=== PATIENT | female | born 1955 | race African-American/Black ===

== ENCOUNTER 2018-09-30 19:40 | Inpatient (IN) | payer MEDICARE, OTHER ==
[2018-09-30 20:24] LABS: ABSOLUTE LYMPHOCYTES (AUTO) 1.9 10^3/uL (0.5-4.7); ABSOLUTE MONOCYTES (AUTO) 0.3 10^3/uL (0.1-1.4); ABSOLUTE NEUT (AUTO) 3.6 10^3/uL (1.7-8.2); BASOPHILS % (AUTO) 0.3 % (0-2); EOSINOPHILS % (AUTO) 0.5 % (0-6); HEMATOCRIT 36.8 % (36.0-47.0); HEMOGLOBIN 12.4 g/dL (12.0-15.5); LYMPHOCYTES % (AUTO) 31.9 % (13-45); MEAN CORPUSCULAR HEMOGLOBIN 30.6 pg (27.0-33.4); MEAN CORPUSCULAR HGB CONC 33.8 g/dL (32.0-36.0); MEAN CORPUSCULAR VOLUME 91 fl (80-97); MONOCYTES % (AUTO) 5.3 % (3-13); PLATELET COUNT 166 10^3/uL (150-450); RED BLOOD COUNT 4.07 10^6/uL (3.72-5.28); RED CELL DISTRIBUTION WIDTH 13.7 % (11.5-14.0); TOTAL CELLS COUNTED % (AUTO) 100 %; WHITE BLOOD COUNT 5.9 10^3/uL (4.0-10.5)
[2018-09-30 20:32] LABS: INTERNATIONAL RATION (INR) 0.93
[2018-09-30 20:42] LABS: ALANINE AMINOTRANSFERASE 49 U/L (9-52); ALBUMIN 4.1 g/dL (3.5-5.0); ALKALINE PHOSPHATASE 57 U/L (38-126); ANION GAP 10 (5-19); ASPARTATE AMINO TRANSFERASE 45 U/L (14-36); BILIRUBIN,DIRECT 0.1 mg/dL (0.0-0.4); BILIRUBIN,TOTAL 0.2 mg/dL (0.2-1.3); BLOOD UREA NITROGEN 21 mg/dL (7-20); CALCIUM 10.2 mg/dL (8.4-10.2); CARBON DIOXIDE 27 mmol/L (22-30); CHLORIDE 106 mmol/L (98-107); GLUCOSE 172 mg/dL (75-110); POTASSIUM 3.9 mmol/L (3.6-5.0); SODIUM 142.9 mmol/L (137-145); TOTAL PROTEIN 7.7 g/dL (6.3-8.2)
[2018-09-30] MEDS ORDERED: [UNRECOGNIZED DRUG - OTHER] IV ONE (20:54)
[2018-09-30] MEDS ORDERED: RINGERS SOLUTION,LACTATED 2,000 ML IV ONE (20:54)
[2018-09-30] MEDS ORDERED: CEFEPIME IV ONE (20:54)
--- NOTE | 2018-09-30 20:55 | RADIOLOGY REPORT (SQ) ---
EXAM DESCRIPTION: XR CHEST 1 VIEW COMPLETED DATE/TME: 09/30/2018 20:17 CLINICAL HISTORY: AMS COMPARISON: None FINDINGS: Cardiac silhouette is within normal limits. Aorta is tortuous. EKG leads project over the chest. There is no focal parenchymal or pleural disease. There is no acute osseous process visualized. IMPRESSION: No evidence of acute cardiopulmonary disease.
--- NOTE | 2018-09-30 21:06 | ER Document Report ---
ED General - General Chief Complaint: Other Stated Complaint: ALTERED Time Seen by Provider: 09/30/18 20:16 Cannot obtain history due to: Dementia, Altered mental status Notes: Patient is a 63-year-old female with a past medical history of advanced dementia, effectively nonverbal at baseline who presents with her family by EMS due to concerns of altered mental status, abnormal breathing pattern. Patient is unable to provide any meaningful history severely limiting history. Per at the bedside patient has been acting abnormally all day. States that normally she is up and about walking around all day long and very rarely sits still. He states that however today he fed her breakfast and then she did not get out of her chair. States that he checked on her regularly because he was concerned that this was quite unusual for her. States that at one point he checked on her and found her lying on the ground with a very irregular breathing pattern. Prompting him to contact 911. Patient was found to be hypothermic and was subsequently transported to the emergency department. No history of similar symptoms in the past. TRAVEL OUTSIDE OF THE [place] IN LAST 30 DAYS: No - Related Data Allergies/Adverse Reactions: No Known Allergies Allergy (Unverified 09/30/18 22:15) Past Medical History - General Information source: Relative Cannot obtain history due to: Dementia - Social History Smoking Status: Never Smoker Chew tobacco use (# tins/day): No Frequency of alcohol use: None Drug Abuse: None Lives with: Spouse/Significant other Family History: Reviewed & Not Pertinent Patient has suicidal ideation: No Patient has homicidal ideation: No Renal/ Medical History: Denies: Hx Peritoneal Dialysis Review of Systems - Review of Systems -: Yes ROS unobtainable due to patient's medical condition Physical Exam - Vital signs Vitals: Temp Pulse Resp BP Pulse Ox 94.9 F L 69 15 156/101 H 100 09/30/18 20:39 09/30/18 20:39 09/30/18 20:39 09/30/18 20:39 09/30/18 20:39 Interpretation: Other - Hypothermic Notes: PHYSICAL EXAMINATION: GENERAL: In no obvious distress, minimally responsive HEAD: Atraumatic, normocephalic. EYES: Pupils equal round and reactive to light, extraocular movements intact, sclera anicteric, conjunctiva are normal. ENT: nares patent, oropharynx clear without exudates. Mildly dry mucous membranes. NECK: Normal range of motion, supple without lymphadenopathy LUNGS: Breath sounds clear to auscultation bilaterally and equal. No wheezes rales or rhonchi. HEART: Regular rate and rhythm without murmurs ABDOMEN: Soft, nontender, normoactive bowel sounds. No guarding, no rebound. No masses appreciated. EXTREMITIES: no pitting or edema. No cyanosis. NEUROLOGICAL: No focal neurological deficits. Moves all extremities spontaneously. PSYCH: Nonverbal SKIN: Warm, Dry, normal turgor, no rashes or lesions noted. Course - Re-evaluation Re-evalutation: 09/30/18 2030 Patient presents lethargic, less responsive than her baseline although does not speak at baseline secondary to dementia although is normally up and about physically per the at the bedside. The patient arrives hypothermic to 94 F, chest compressions by family were done prior to arrival at the hospital although patient apparently never lost pulses per EMS. On initial examination patient does not have any obvious focal deficits. She does however not follow commands in any extremity. Picture is worrisome for severe sepsis given hypothermia, apparent global weakness, source yet undetermined. Chest x-ray, l abs, urinalysis are pending. 09/30/18 21:05 Patient's lactate is 4.4 concerning for severe sepsis. The patient will receive cefepime 2 g empirically and be started on 2 L of lactated Ringer's. Additional labs are otherwise relatively unremarkable. Urinalysis pending. Temperature Escobedo catheter will be placed. CT head will likewise be obtained. Will continue to reassess. 10/01/18 0100 Patient has been reassessed on 2 additional occasions since last assessment. Clinically has improved no longer hypothermic, more responsive per family at bedside. Labs other than lactate have been broadly unremarkable. CT of the chest abdomen and pelvis was also obtained to further evaluate potential source of the patient's significant hypothermia and lactate elevation but again likewise normal. Have discussed with the hospitalist Dr. Ramachandran who has accepted the patient for admission. CT of cervical spine was obtained after conversation with Dr. Ramachandran due to concerns of the patient did have a fall today and cannot clinically clear her cervical spine. - Vital Signs Vital signs: Temp Pulse Resp BP Pulse Ox 98.0 F 61 15 134/84 H 100 10/01/18 01:00 10/01/18 01:00 10/01/18 01:00 10/01/18 01:00 10/01/18 01:00 - Laboratory Result Diagrams: 09/30/18 20:00 09/30/18 20:00 Laboratory results interpreted by me: 09/30/18 09/30/18 09/30/18 20:00 20:00 21:30 BUN 21 H Glucose 172 H Lactic Acid 4.4 H AST 45 H Urine Ascorbic Acid 40 H - Diagnostic Test Radiology reviewed: Image reviewed, Reports reviewed Radiology results interpreted by me: 10/01/18 00:23 Chest x-ray: No acute infiltrate or pneumothorax CT head: No acute intracranial bleed or mass Discharge - Discharge Clinical Impression: Lactic acidosis Hypothermia Qualifiers: Encounter type: initial encounter Qualified Code(s): T68.XXXA - Hypothermia, i nitial encounter Altered mental status Qualifiers: Altered mental status type: somnolence Qualified Code(s): R40.0 - Somnolence Fall Qualifiers: Encounter type: initial encounter Qualified Code(s): W19.XXXA - Unspecified fall, initial encounter Condition: Fair Disposition: ADMITTED INPATIENT Admitting Provider: Madie (Hospitalist) Unit Admitted: Medical Floor
[2018-09-30 21:34] LABS: VENOUS BLOOD BASE EXCESS 3.7 mmol/L; VENOUS BLOOD HCO3 30.2 mmol/L (20-32); VENOUS BLOOD PCO2 53.6 mmHg (35-63); VENOUS BLOOD PH 7.37 (7.30-7.42)
--- NOTE | 2018-09-30 22:06 | RADIOLOGY REPORT (SQ) ---
EXAM DESCRIPTION: CT HEAD WITHOUT IV CONTRAST COMPLETED DATE/TME: 09/30/2018 20:54 CLINICAL HISTORY: ams COMPARISON: None available TECHNIQUE: Axial CT of the head obtained from the skull apex to the skull base without contrast. FINDINGS: No acute intracranial hemorrhage identified. No mass, mass effect, shift of the midline, abnormal extra-axial fluid collection or CT evidence of acute ischemic change identified. The ventricular system is enlarged upper portion to the sulcal spaces. Scattered areas of hypodensity throughout the supratentorial white matter are nonspecific and may be related to chronic small vessel ischemic change. The visualized paranasal sinuses and the mastoids are clear. No skull fracture identified. Visualized orbits and globes are unremarkable. Atherosclerotic calcification of the intracranial internal carotid arteries. DLP:1017.17 mGy-cm IMPRESSION: 1. No acute intracranial abnormality by CT criteria. 2. The ventricular system is mildly enlarged out of proportion to the sulcal spaces. This could indicate a component of communicating hydrocephalus. This exam was performed according to our departmental dose-optimization program, which includes automated exposure control, adjustment of the mA and/or kV according to patient size and/or use of iterative reconstruction technique.
[2018-09-30 22:21] LABS: APPEARANCE,URINE CLEAR; BILIRUBIN,URINE NEGATIVE (NEGATIVE); COLOR,URINE YELLOW; GLUCOSE, URINE NEGATIVE (NEGATIVE); KETONES,URINE NEGATIVE (NEGATIVE); LEUKOCYTE ESTERASE,URINE NEGATIVE (NEGATIVE); NITRITE,URINE NEGATIVE (NEGATIVE); PROTEIN,URINE NEGATIVE (NEGATIVE); UROBILINOGEN,URINE NEGATIVE mg/dL (<2.0)
--- NOTE | 2018-09-30 23:13 | EKG REPORT ---
SEVERITY:- BORDERLINE ECG - SINUS RHYTHM BORDERLINE INFERIOR Q WAVES MINIMAL ST DEPRESSION, INFERIOR LEADS : Confirmed by: Gabriele Tyson MD 30-Sep-2018 23:13:24
--- NOTE | 2018-09-30 23:17 | RADIOLOGY REPORT (SQ) ---
EXAM DESCRIPTION: CT CHEST WITH IV CONTRAST, CT ABDOMEN PELVIS WITH IV CONTRAST COMPLETED DATE/TME: 09/30/2018 22:24 CLINICAL HISTORY: 63 years, Female, non-verbal, hypothermia, vomiting, elevated lactat COMPARISON: None. TECHNIQUE: 445 Images stored on PACS. All CT scanners at this facility use dose modulation, iterative reconstruction, and/or weight based dosing when appropriate to reduce radiation dose to as low as reasonably achievable (ALARA). [facility]: Dose Right [facility]: CareDose [facility]: Dose Right [facility]: Teradose 4D [facility]: [employer] LIMITATIONS: None. FINDINGS: CT chest: The mediastinal vasculature enhances normally. No adenopathy. The heart and pericardium are unremarkable. Osseous structures of the thorax are grossly intact. No pneumothorax. The visualized airways are patent. The lungs are clear. CT abdomen/pelvis: Osseous structures of the abdomen/pelvis are grossly intact. The liver, spleen, adrenal glands, pancreas, kidneys are unremarkable. Gallbladder is present. Large amount of stool in the colon. Normal appendix. Bulky heterogeneous appearance to the uterus with partially exophytic calcified uterine fibroids. Probable fecal impaction. Escobedo catheter in urinary bladder. Small amount of air in the bladder is likely iatrogenic. IMPRESSION: No acute intrathoracic process. Large amount of stool in the colon. Fibroid change to the uterus. TECHNICAL DOCUMENTATION: Quality ID # 436: Final reports with documentation of one or more dose reduction techniques (e.g., Automated exposure control, adjustment of the mA and/or kV according to patient size, use of iterative reconstruction technique) copyright 2010 [employer]- All Rights Reserved
[2018-10-01] MEDS ORDERED: MAG HYDROX/AL HYDROX/SIMETH SUSP 30 ML UDCUP PO PRN (00:19)
[2018-10-01] MEDS ORDERED: MAGNESIUM HYDROXIDE SUSP 30 ML UDCUP PO PRN (00:19)
[2018-10-01] MEDS ORDERED: ACETAMINOPHEN 325 MG TABLET PO PRN (00:19)
[2018-10-01 01:23] LABS: CREATINE KINASE MB 2.64 ng/mL (<4.55)
[2018-10-01 01:27] LABS: TROPONIN I < 0.012 ng/mL
[2018-10-01 01:27] LABS: FREE T3 4.21 pg/mL (2.77-5.27); FREE T4 (FREE THYROXINE) 1.13 ng/dL (0.78-2.19)
--- NOTE | 2018-10-01 02:13 | RADIOLOGY REPORT (SQ) ---
EXAM DESCRIPTION: CT CERVICAL SPINE WITHOUT IV CONTRAST COMPLETED DATE/TME: 10/01/2018 00:24 CLINICAL HISTORY: 63 years, Female, fall COMPARISON: None. TECHNIQUE: 215 Images stored on PACS. All CT scanners at this facility use dose modulation, iterative reconstruction, and/or weight based dosing when appropriate to reduce radiation dose to as low as reasonably achievable (ALARA). [facility]: Dose Right [facility]: CareDose [facility]: Dose Right [facility]: Teradose 4D [facility]: [employer] LIMITATIONS: None. FINDINGS: Straightening of the normal lordosis may reflect muscle spasm/strain. Height and alignment is preserved. Diffuse disc space narrowing with ossific spurring, endplate degenerative change, and facet arthropathy. Extraspinal anatomic structures are grossly unremarkable. Motion artifact does limit the exam IMPRESSION: No evidence for acute C-spine abnormality TECHNICAL DOCUMENTATION: Quality ID # 436: Final reports with documentation of one or more dose reduction techniques (e.g., Automated exposure control, adjustment of the mA and/or kV according to patient size, use of iterative reconstruction technique) copyright 2011 [employer]- All Rights Reserved
--- NOTE | 2018-10-01 03:47 | PDOC H&P ---
History of Present Illness Admission Date/PCP: 10/01/2018 00:08 Angel Harrison Patient complains of: Hypothermia History of Present Illness: HARISH WEBSTER is a 63 year old female who presented to the emergency room with acute hypothermia. The patient is severely demented and nonverbal and as such is unable to contribute to her medical care or information. All medical information is obtained from reliable sources including the patient's , emergency room staff and all available medical records. The patient's indicates that she was apparently normal this morning when he saw her and brought her breakfast. However after breakfast she would normally be very active and she did not get up from her chair and as such he became somewhat concerned about her. He was observing her and though she seemed to be quite normal she continued to be significantly less active than her usual status. While he was observing her she seemed to try to get out of her chair but was unable to stand up and fell to the floor without striking her head or sustaining any apparent injury. When he went to her side to assist her he noticed that her skin felt very cold And her breathing was irregular. He became concerned and called EMS who found the patient hypothermic upon their arrival with a core temperature of 93.7 and she was also noted to have an oxygen saturation of 90% on room air. Patient was given supplemental oxygen via nasal cannula and brought to the emergency room. In the ER she was found to have a core temperature of 94.9 F and her oxygen saturation was 99% on room air with all other vital signs being normal and an unremarkable laboratory evaluation with the exception of an elevated serum lactate at 4.4. She was noted to be lethargic and poorly responsive to verbal commands. CT evaluations of her head, chest, abdomen and pelvis were negative for any acute changes. The patient's core temperature was raised to 97.2 F using a bear hugger warming blanket and she was subsequently admitted to the hospital for further evaluation and treatment. Past Medical History Cardiac Medical History: Denies: Atrial Fibrillation, Congestive Heart Failure, Coronary Artery Disease, Myocardial Infarction, Hyperlipidema, Hypertension Pulmonary Medical History: Denies: Asthma, Chronic Obstructive Pulmonary Disease (COPD) EENT Medical History: Denies: Cataracts, Ears - Hearing aids Neurological Medical History: Denies: Multiple Sclerosis, Seizures Endocrine Medical History: Denies: Diabetes Mellitus Type 1, Diabetes Mellitus Type 2, Hyperthyroidism, Hypothyroidism Renal/ Medical History: Denies: Chronic Kidney Disease, Nephrolithiasis Malignancy Medical History: Reports: None GI Medical History: Denies: Cirrhosis, Hepatitis Musculoskeltal Medical History: Denies: Arthritis, Gout Skin Medical History: Denies: Eczema, Psoriasis Psychiatric Medical History: Reports: Dementia - Severe Alzheimer's disease Denies: Alcohol Dependency, Substance Abuse, Tobacco Dependency Traumatic Medical History: Reports: None Hematology: Denies: Anemia, Bleeding Tendencies Infectious Medical History: Reports: None Past Surgical History Past Surgical History: Reports: None Social History Information Source: Relative - Lives with: Spouse/Significant other Smoking Status: Never Smoker Frequency of Alcohol Use: None Hx Recreational Drug Use: No Drugs: None Hx Prescription Drug Abuse: No - Advance Directive Resuscitation Status: Full Code Surrogate healthcare decision maker:: Johnny Webster Family History Family History: denies: CAD, DM, Hypertension, Malignancy Parental Family History Reviewed: Yes Children Family History Reviewed: No Sibling(s) Family History Reviewed.: Yes Medication/Allergy Allergies/Adverse Reactions: No Known Allergies Allergy (Unverified 09/30/18 22:15) Review of Systems ROS unobtainable: Due to mental status - Severe dementia Physical Exam Vital Signs: Temp Pulse Resp BP Pulse Ox 97.5 F 70 14 139/102 H 99 09/30/18 23:13 09/30/18 23:13 09/30/18 23:13 09/30/18 23:13 09/30/18 23:13 Intake & Output 09/29/18 09/30/18 10/01/18 23:59 23:59 23:59 Intake Total 50 Balance 50 Weight 61.235 kg General appearance: PRESENT: no acute distress, well-developed, other - Lethargic but arousable with verbal stimuli. Will follow some simple commands. Head exam: PRESENT: atraumatic, normocephalic Eye exam: ABSENT: conjunctival injection, scleral icterus Ear exam: PRESENT: normal external ear exam. ABSENT: bleeding, drainage Mouth exam: PRESENT: dry mucosa, neck supple Neck exam: ABSENT: JVD, meningismus, thyromegaly, tracheal deviation Respiratory exam: PRESENT: clear to auscultation roby, symmetrical, unlabored Cardiovascular exam: PRESENT: RRR. ABSENT: clicks, gallop, rubs Pulses: PRESENT: normal radial pulses, normal dorsalis pedis pul GI/Abdominal exam: PRESENT: normal bowel sounds, soft Rectal exam: PRESENT: deferred Extremities exam: ABSENT: joint swelling, pedal edema Musculoskeletal exam: ABSENT: deformity, dislocation Neurological exam: PRESENT: altered - Somnolent/lethargic, nonverbal, follows some simple commands, is arousable to verbal stimuli, other - Severe Alzheimer's dementia, no evidence of nuchal rigidity or meningismus on evaluation. Psychiatric exam: PRESENT: other - Nonverbal, severe Alzheimer's dementia, somnolent/lethargic but arousable to verbal stimuli, follows some simple commands Focused psych exam: PRESENT: other - Calm Skin exam: PRESENT: dry, intact, warm. ABSENT: jaundice, rash, urticaria Results Laboratory Results: 09/30/18 20:00 09/30/18 20:00 09/30/18 09/30/18 09/30/18 20:00 20:00 20:00 WBC 5.9 RBC 4.07 Hgb 12.4 Hct 36.8 MCV 91 MCH 30.6 MCHC 33.8 RDW 13.7 Plt Count 166 Seg Neutrophils % 62.0 Lymphocytes % 31.9 Monocytes % 5.3 Eosinophils % 0.5 Basophils % 0.3 Absolute Neutrophils 3.6 Absolute Lymphocytes 1.9 Absolute Monocytes 0.3 Absolute Eosinophils 0.0 Absolute Basophils 0.0 VBG pH VBG pCO2 VBG HCO3 VBG Base Excess Sodium 142.9 Potassium 3.9 Chloride 106 Carbon Dioxide 27 Anion Gap 10 BUN 21 H Creatinine 0.90 Est GFR ( Amer) > 60 Est GFR (Non-Af Amer) > 60 Glucose 172 H Lactic Acid 4.4 H Calcium 10.2 Total Bilirubin 0.2 AST 45 H ALT 49 Alkaline Phosphatase 57 Total Protein 7.7 Albumin 4.1 Urine Color Urine Appearance Urine pH Ur Specific [place] Urine Protein Urine Glucose (UA) Urine Ketones Urine Blood Urine Nitrite Ur Leukocyte Esterase Urine WBC (Auto) Urine RBC (Auto) 09/30/18 09/30/18 09/30/18 20:00 21:00 21:30 WBC RBC Hgb Hct MCV MCH MCHC RDW Plt Count Seg Neutrophils % Lymphocytes % Monocytes % Eosinophils % Basophils % Absolute Neutrophils Absolute Lymphocytes Absolute Monocytes Absolute Eosinophils Absolute Basophils VBG pH Cancelled 7.37 VBG pCO2 Cancelled 53.6 VBG HCO3 Cancelled 30.2 VBG Base Excess Cancelled 3.7 Sodium Potassium Chloride Carbon Dioxide Anion Gap BUN Creatinine Est GFR ( Amer) Est GFR (Non-Af Amer) Glucose Lactic Acid Calcium Total Bilirubin AST ALT Alkaline Phosphatase Total Protein Albumin Urine Color YELLOW Urine Appearance CLEAR Urine pH 5.0 Ur Specific [place] 1.020 Urine Protein NEGATIVE Urine Glucose (UA) NEGATIVE Urine Ketones NEGATIVE Urine Blood NEGATIVE Urine Nitrite NEGATIVE Ur Leukocyte Esterase NEGATIVE Urine WBC (Auto) 1 Urine RBC (Auto) 4 09/30/18 20:00 Troponin I < 0.012 Impressions: Chest X-Ray 09/30/18 20:17 IMPRESSION: No evidence of acute cardiopulmonary disease. Head CT 09/30/18 20:54 IMPRESSION: 1. No acute intracranial abnormality by CT criteria. 2. The ventricular system is mildly enlarged out of proportion to the sulcal spaces. This could indicate a component of communicating hydrocephalus. This exam was performed according to our departmental dose-optimization program, which includes automated exposure control, adjustment of the mA and/or kV according to patient size and/or use of iterative reconstruction technique. Abdomen/Pelvis CT 09/30/18 22:24 IMPRESSION: No acute intrathoracic process. Large amount of stool in the colon. Fibroid change to the uterus. TECHNICAL DOCUMENTATION: Quality ID # 436: Final reports with documentation of one or more dose reduction techniques (e.g., Automated exposure control, adjustment of the mA and/or kV according to patient size, use of iterative reconstruction technique) copyright 2010 [employer]- All Rights Reserved Chest CT 09/30/18 22:24 IMPRESSION: No acute intrathoracic process. Large amount of stool in the colon. Fibroid change to the uterus. TECHNICAL DOCUMENTATION: Quality ID # 436: Final reports with documentation of one or more dose reduction techniques (e.g., Automated exposure control, adjustment of the mA and/or kV according to patient size, use of iterative reconstruction technique) copyright 2010 [employer]- All Rights Reserved Assessment and Plan - Diagnosis (1) SIRS (systemic inflammatory response syndrome) Is this a current diagnosis for this admission?: Yes Plan: With the patient having hypothermia and lethargy as well as an elevated lactic acid consideration for possible sepsis must be entertained. Serial lactic acid levels will be evaluated. Patient will also be observed throughout her hospital course for any other signs or changes consistent with possible sepsis. Further investigation will be performed as required. (2) Hypothermia Qualifiers: Encounter type: initial encounter Qualified Code(s): T68.XXXA - Hypothermia, initial encounter Is this a current diagnosis for this admission?: Yes Plan: Patient's body temperature will be monitored closely throughout her hospital course. Any recurrence of hypothermia will be immediately treated with a rewarming blanket and reevaluation of possible sources of the patient's hypothermia. Daily CBC, metabolic profile and magnesium levels will be followed as part of this evaluation. Additionally a thyroid profile will be obtained. (3) Lethargy Is this a current diagnosis for this admission?: Yes Plan: The patient's overall mental status will be followed closely throughout her hospital course with neuro checks every 4 hours. Any deterioration in the patient's mental status will be addressed as appropriate. (4) Lactic acidosis Is this a current diagnosis for this admission?: Yes Plan: Patient's lactic acidosis will be evaluated with serial lactic acid levels. Her metabolic status will be followed with daily metabolic profiles and magnesium levels. Her potential for sepsis status will be followed with daily CBCs. - Time Time Spent with patient: 15-24 minutes Anticipated discharge: Home - Inpatient Certification Based on my medical assessment, after consideration of the patient's comorbidities, presenting symptoms, or acuity I expect that the services needed warrant INPATIENT care.: Yes I certify that my determination is in accordance with my understanding of Medicare's requirements for reasonable and necessary INPATIENT services [42 CFR 412.3e].: Yes Medical Necessity: Need Close Monitoring Due to Risk of Patient Decompensation, Need for Neurological Checks, Risk of Complication if Not Cared For in Hospital, Risk of Diagnosis Which Will Require Inpatient Eval/Care/Monitoring
[2018-10-01 04:50] LABS: HEMATOCRIT 33.9 % (36.0-47.0); HEMOGLOBIN 11.5 g/dL (12.0-15.5); MEAN CORPUSCULAR HEMOGLOBIN 30.4 pg (27.0-33.4); MEAN CORPUSCULAR HGB CONC 34.1 g/dL (32.0-36.0); MEAN CORPUSCULAR VOLUME 89 fl (80-97); PLATELET COUNT 142 10^3/uL (150-450); RED BLOOD COUNT 3.79 10^6/uL (3.72-5.28); RED CELL DISTRIBUTION WIDTH 13.4 % (11.5-14.0)
[2018-10-01 05:21] LABS: ANION GAP 6 (5-19); BLOOD UREA NITROGEN 17 mg/dL (7-20); CALCIUM 9.6 mg/dL (8.4-10.2); CARBON DIOXIDE 29 mmol/L (22-30); CHLORIDE 106 mmol/L (98-107); GLUCOSE 93 mg/dL (75-110); POTASSIUM 3.8 mmol/L (3.6-5.0)
[2018-10-01 06:59] LABS: CREATINE KINASE MB 3.13 ng/mL (<4.55)
[2018-10-01 07:02] LABS: TROPONIN I < 0.012 ng/mL
[2018-10-01] MEDS ORDERED: CEFEPIME 2 GM/D5W RTU 2 GM/50 ML RTUPB IV SCH (10:00)
[2018-10-01] MEDS: FAMOTIDINE 20 MG TABLET PO SCH ×2 (11:14→21:23)
[2018-10-01] MEDS: ENOXAPARIN SODIUM INJ 40 MG/0.4 ML DISP.SYRIN SUBCUT SCH (11:14)
[2018-10-01] MEDS: DOCUSATE SODIUM 100 MG CAPSULE PO SCH ×2 (11:14→17:51)
[2018-10-01] MEDS: CEFEPIME HCL 2 GM in DEXTROSE 5%-WATER 50 ML IV SCH ×2 (11:15→21:21)
[2018-10-01] MEDS: ATORVASTATIN CALCIUM 20 MG TABLET PO SCH (23:00)
[2018-10-02 04:50] LABS: HEMATOCRIT 35.7 % (36.0-47.0); MEAN CORPUSCULAR HEMOGLOBIN 30.3 pg (27.0-33.4); MEAN CORPUSCULAR HGB CONC 33.6 g/dL (32.0-36.0); MEAN CORPUSCULAR VOLUME 90 fl (80-97); PLATELET COUNT 147 10^3/uL (150-450); RED BLOOD COUNT 3.97 10^6/uL (3.72-5.28); RED CELL DISTRIBUTION WIDTH 13.7 % (11.5-14.0)
[2018-10-02 05:25] LABS: ANION GAP 8 (5-19); BLOOD UREA NITROGEN 17 mg/dL (7-20); CALCIUM 9.5 mg/dL (8.4-10.2); CARBON DIOXIDE 29 mmol/L (22-30); CHLORIDE 104 mmol/L (98-107); CREATINE KINASE MB 4.39 ng/mL (<4.55); GLUCOSE 95 mg/dL (75-110); POTASSIUM 4.1 mmol/L (3.6-5.0); SODIUM 140.9 mmol/L (137-145)
[2018-10-02 05:36] LABS: TROPONIN I < 0.012 ng/mL
[2018-10-02] MEDS: FAMOTIDINE 20 MG TABLET PO SCH ×2 (10:10→21:30)
[2018-10-02] MEDS: DOCUSATE SODIUM 100 MG CAPSULE PO SCH ×2 (10:10→17:33)
[2018-10-02] MEDS: ENOXAPARIN SODIUM INJ 40 MG/0.4 ML DISP.SYRIN SUBCUT SCH (10:10)
[2018-10-02] MEDS: ASPIRIN 81 MG TABLET, ENT COATED PO SCH (10:10)
[2018-10-02] MEDS: VITAMIN E (DL, ACETATE) 400 UNIT CAPSULE PO SCH (10:18)
[2018-10-02] MEDS: CEFEPIME HCL 2 GM in DEXTROSE 5%-WATER 50 ML IV SCH ×2 (10:18→21:31)
--- NOTE | 2018-10-02 16:58 | PDOC PROGRESS REPORT ---
Subjective Progress Note for:: 10/02/18 Subjective:: No adverse events overnight. No new complaints. She is been eating well when she is been fed. No more episodes of hypothermia. Cultures remain negative. Reason For Visit: ELEVATED LACTIC ACID LEVEL,HYPOTHERMIA Physical Exam Vital Signs: Temp Pulse Resp BP Pulse Ox 98.4 F 53 L 18 127/81 H 99 10/02/18 11:13 10/02/18 07:27 10/02/18 11:13 10/02/18 11:13 10/02/18 07:27 Intake & Output 10/01/18 10/02/18 10/03/18 06:59 06:59 06:59 Intake Total 2049 1630 190 Output Total 1200 Balance 2049 430 190 Weight 61.3 kg 63.8 kg General appearance: PRESENT: no acute distress, cooperative, disheveled Respiratory exam: PRESENT: clear to auscultation roby, symmetrical, unlabored. ABSENT: accessory muscle use, chest wall tenderness, crackles, prolonged expiratory phas, rhonchi, tachypnea, wheezes Cardiovascular exam: PRESENT: RRR, +S1, +S2 Pulses: PRESENT: normal carotid pulses Vascular exam: PRESENT: normal capillary refill GI/Abdominal exam: PRESENT: normal bowel sounds, soft. ABSENT: distended, guarding, rebound, tenderness Extremities exam: ABSENT: clubbing, pedal edema Musculoskeletal exam: PRESENT: normal inspection. ABSENT: deformity Neurological exam: PRESENT: alert, awake, other - Nonverbal Psychiatric exam: PRESENT: flat affect Skin exam: PRESENT: dry, warm Results Laboratory Results: 10/02/18 04:26 10/02/18 04:26 10/02/18 10/02/18 04:26 04:26 WBC 6.0 RBC 3.97 Hgb 12.0 Hct 35.7 L MCV 90 MCH 30.3 MCHC 33.6 RDW 13.7 Plt Count 147 L Sodium 140.9 Potassium 4.1 Chloride 104 Carbon Dioxide 29 Anion Gap 8 BUN 17 Creatinine 0.99 Est GFR ( Amer) > 60 Est GFR (Non-Af Amer) 56 L Glucose 95 Calcium 9.5 Magnesium 1.7 09/30/18 21:30 Catheterized Urine Urine Culture - Final NO GROWTH 2 DAYS 09/30/18 10/01/18 10/01/18 20:00 00:35 00:35 Creatine Kinase 175 H CK-MB (CK-2) 2.64 Troponin I < 0.012 < 0.012 10/01/18 10/01/18 10/02/18 06:11 06:11 04:26 Creatine Kinase 209 H 213 H CK-MB (CK-2) 3.13 Troponin I < 0.012 10/02/18 04:26 Creatine Kinase CK-MB (CK-2) 4.39 Troponin I < 0.012 Impressions: Chest X-Ray 09/30/18 20:17 IMPRESSION: No evidence of acute cardiopulmonary disease. Head CT 09/30/18 20:54 IMPRESSION: 1. No acute intracranial abnormality by CT criteria. 2. The ventricular system is mildly enlarged out of proportion to the sulcal spaces. This could indicate a component of communicating hydrocephalus. This exam was performed according to our departmental dose-optimization program, which includes automated exposure control, adjustment of the mA and/or kV according to patient size and/or use of iterative reconstruction technique. Abdomen/Pelvis CT 09/30/18 22:24 IMPRESSION: No acute intrathoracic process. Large amount of stool in the colon. Fibroid change to the uterus. TECHNICAL DOCUMENTATION: Quality ID # [id number]: Final reports with documentation of one or more dose reduction techniques (e.g., Automated exposure control, adjustment of the mA and/or kV according to patient size, use of iterative reconstruction technique) copyright 2010 [employer]- All Rights Reserved Chest CT 09/30/18 22:24 IMPRESSION: No acute intrathoracic process. Large amount of stool in the colon. Fibroid change to the uterus. TECHNICAL DOCUMENTATION: Quality ID # [id number]: Final reports with documentation of one or more dose reduction techniques (e.g., Automated exposure control, adjustment of the mA and/or kV according to patient size, use of iterative reconstruction technique) copyright 2010 [employer]- All Rights Reserved Cervical Spine CT 10/01/18 00:24 IMPRESSION: No evidence for acute C-spine abnormality TECHNICAL DOCUMENTATION: Quality ID # [id number]: Final reports with documentation of one or more dose reduction techniques (e.g., Automated exposure control, adjustment of the mA and/or kV according to patient size, use of iterative reconstruction technique) copyright 2010 [employer]- All Rights Reserved Assessment and Plan - Diagnosis (1) SIRS (systemic inflammatory response syndrome) Is this a current diagnosis for this admission?: Yes Plan: Still not sure as to etiology for hypothermia. Plan is to continue antibiotics until blood cultures are negative as a final result. In the meantime we will monitor her to see if something announces itself. - Time Time Spent with patient: 15-24 minutes
[2018-10-02] MEDS: ATORVASTATIN CALCIUM 20 MG TABLET PO SCH (21:30)
[2018-10-03 05:11] LABS: HEMATOCRIT 36.6 % (36.0-47.0); HEMOGLOBIN 12.4 g/dL (12.0-15.5); MEAN CORPUSCULAR HEMOGLOBIN 30.3 pg (27.0-33.4); MEAN CORPUSCULAR HGB CONC 33.9 g/dL (32.0-36.0); MEAN CORPUSCULAR VOLUME 89 fl (80-97); PLATELET COUNT 154 10^3/uL (150-450); RED BLOOD COUNT 4.09 10^6/uL (3.72-5.28); RED CELL DISTRIBUTION WIDTH 13.6 % (11.5-14.0); WHITE BLOOD COUNT 6.1 10^3/uL (4.0-10.5)
[2018-10-03 05:19] LABS: ANION GAP 8 (5-19); BLOOD UREA NITROGEN 19 mg/dL (7-20); CALCIUM 9.5 mg/dL (8.4-10.2); CARBON DIOXIDE 29 mmol/L (22-30); CHLORIDE 104 mmol/L (98-107); GLUCOSE 121 mg/dL (75-110); POTASSIUM 4.3 mmol/L (3.6-5.0); SODIUM 140.6 mmol/L (137-145)
[2018-10-03] MEDS: ASPIRIN 81 MG TABLET, ENT COATED PO SCH (10:52)
[2018-10-03] MEDS: FAMOTIDINE 20 MG TABLET PO SCH ×2 (10:52→21:08)
[2018-10-03] MEDS: CEFEPIME HCL 2 GM in DEXTROSE 5%-WATER 50 ML IV SCH ×2 (10:52→21:08)
[2018-10-03] MEDS: DOCUSATE SODIUM 100 MG CAPSULE PO SCH ×2 (10:52→17:23)
[2018-10-03] MEDS: ENOXAPARIN SODIUM INJ 40 MG/0.4 ML DISP.SYRIN SUBCUT SCH (10:52)
[2018-10-03] MEDS: VITAMIN E (DL, ACETATE) 400 UNIT CAPSULE PO SCH (10:52)
--- NOTE | 2018-10-03 16:22 | PDOC PROGRESS REPORT ---
Subjective Progress Note for:: 10/03/18 Subjective:: This is 65 years old black male patient with past medical history of dementia and nonverbal throughout his chief complaint of hypothermia. On arrival to ER her core temperature was 94.9 and her oxygen saturation was 99% on room air. All her blood works are unremarkable except markedly elevated lactic acid of 4.4. Her CT head pelvis chest and abdomen were negative. Patient has been managed conservatively. 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 Reason For Visit: ELEVATED LACTIC ACID LEVEL,HYPOTHERMIA Physical Exam Vital Signs: Temp Pulse Resp BP Pulse Ox 98.1 F 72 16 135/70 H 100 10/03/18 12:00 10/03/18 12:00 10/03/18 12:00 10/03/18 12:00 10/03/18 12:00 Intake & Output 10/02/18 10/03/18 10/04/18 06:59 06:59 06:59 Intake Total 1630 480 530 Output Total 1200 600 Balance 430 -120 530 Weight 63.8 kg 63.7 kg General appearance: PRESENT: no acute distress Head exam: PRESENT: atraumatic Neck exam: ABSENT: carotid bruit, JVD, lymphadenopathy, thyromegaly Respiratory exam: PRESENT: clear to auscultation roby. ABSENT: rales, rhonchi, wheezes Cardiovascular exam: PRESENT: RRR. ABSENT: diastolic murmur, rubs, systolic murmur Neurological exam: PRESENT: alert, awake Results Laboratory Results: 10/03/18 04:21 10/03/18 04:21 10/03/18 10/03/18 04:21 04:21 WBC 6.1 RBC 4.09 Hgb 12.4 Hct 36.6 MCV 89 MCH 30.3 MCHC 33.9 RDW 13.6 Plt Count 154 Sodium 140.6 Potassium 4.3 Chloride 104 Carbon Dioxide 29 Anion Gap 8 BUN 19 Creatinine 0.98 Est GFR ( Amer) > 60 Est GFR (Non-Af Amer) 57 L Glucose 121 H Calcium 9.5 Magnesium 1.8 09/30/18 21:30 Catheterized Urine Urine Culture - Final NO GROWTH 2 DAYS 09/30/18 10/01/18 10/01/18 20:00 00:35 00:35 Creatine Kinase 175 H CK-MB (CK-2) 2.64 Troponin I < 0.012 < 0.012 10/01/18 10/01/18 10/02/18 06:11 06:11 04:26 Creatine Kinase 209 H 213 H CK-MB (CK-2) 3.13 Troponin I < 0.012 10/02/18 04:26 Creatine Kinase CK-MB (CK-2) 4.39 Troponin I < 0.012 Impressions: Chest X-Ray 09/30/18 20:17 IMPRESSION: No evidence of acute cardiopulmonary disease. Head CT 09/30/18 20:54 IMPRESSION: 1. No acute intracranial abnormality by CT criteria. 2. The ventricular system is mildly enlarged out of proportion to the sulcal spaces. This could indicate a component of communicating hydrocephalus. This exam was performed according to our departmental dose-optimization program, which includes automated exposure control, adjustment of the mA and/or kV according to patient size and/or use of iterative reconstruction technique. Abdomen/Pelvis CT 09/30/18 22:24 IMPRESSION: No acute intrathoracic process. Large amount of stool in the colon. Fibroid change to the uterus. TECHNICAL DOCUMENTATION: Quality ID # [id number]: Final reports with documentation of one or more dose reduction techniques (e.g., Automated exposure control, adjustment of the mA and/or kV according to patient size, use of iterative reconstruction technique) copyright 2010 [employer]- All Rights Reserved Chest CT 09/30/18 22:24 IMPRESSION: No acute intrathoracic process. Large amount of stool in the colon. Fibroid change to the uterus. TECHNICAL DOCUMENTATION: Quality ID # [id number]: Final reports with documentation of one or more dose reduction techniques (e.g., Automated exposure control, adjustment of the mA and/or kV according to patient size, use of iterative reconstruction technique) copyright 2010 [employer]- All Rights Reserved Cervical Spine CT 10/01/18 00:24 IMPRESSION: No evidence for acute C-spine abnormality TECHNICAL DOCUMENTATION: Quality ID # [id number]: Final reports with documentation of one or more dose reduction techniques (e.g., Automated exposure control, adjustment of the mA and/or kV according to patient size, use of iterative reconstruction technique) copyright 2010 [employer]- All Rights Reserved Assessment and Plan - Diagnosis (1) SIRS (systemic inflammatory response syndrome) Is this a current diagnosis for this admission?: Yes Plan: Her hypothermia and lactic acidosis has resolved. (2) Hypothermia Qualifiers: Encounter type: initial encounter Qualified Code(s): T68.XXXA - Hypothermia, initial encounter Is this a current diagnosis for this admission?: Yes Plan: Resolved with (3) Lethargy Is this a current diagnosis for this admission?: Yes Plan: Now patient is awake alert (4) Lactic acidosis Is this a current diagnosis for this admission?: Yes Plan: Resolved
[2018-10-03] MEDS: ATORVASTATIN CALCIUM 20 MG TABLET PO SCH (21:08)
[2018-10-04] MEDS: CEFEPIME HCL 2 GM in DEXTROSE 5%-WATER 50 ML IV SCH ×2 (11:13→21:31)
[2018-10-04] MEDS: ENOXAPARIN SODIUM INJ 40 MG/0.4 ML DISP.SYRIN SUBCUT SCH (11:16)
[2018-10-04] MEDS: VITAMIN E (DL, ACETATE) 400 UNIT CAPSULE PO SCH (11:17)
[2018-10-04] MEDS: FAMOTIDINE 20 MG TABLET PO SCH ×2 (11:17→21:31)
[2018-10-04] MEDS: ASPIRIN 81 MG TABLET, ENT COATED PO SCH (11:17)
[2018-10-04] MEDS: DOCUSATE SODIUM 100 MG CAPSULE PO SCH ×2 (11:17→17:25)
--- NOTE | 2018-10-04 14:06 | PDOC PROGRESS REPORT ---
Subjective Progress Note for:: 10/04/18 Subjective:: Patient seen resting in bed comfortably. She is awake alert but she is nonverbal. Patient is still weak and she is not able to walk by herself. Physical therapy is actively working with her Reason For Visit: ELEVATED LACTIC ACID LEVEL,HYPOTHERMIA Physical Exam Vital Signs: Temp Pulse Resp BP Pulse Ox 98.1 F 111 H 21 H 140/89 H 92 10/04/18 12:00 10/04/18 12:00 10/04/18 12:00 10/04/18 12:00 10/04/18 12:00 Intake & Output 10/03/18 10/04/18 10/05/18 06:59 06:59 06:59 Intake Total 480 1850 290 Output Total 600 200 300 Balance -120 1650 -10 Weight 63.7 kg 64.8 kg General appearance: PRESENT: no acute distress Head exam: PRESENT: atraumatic, other - Alopecia Neck exam: ABSENT: carotid bruit, JVD, lymphadenopathy, thyromegaly Respiratory exam: PRESENT: clear to auscultation roby. ABSENT: rales, rhonchi, wheezes Cardiovascular exam: PRESENT: RRR. ABSENT: diastolic murmur, rubs, systolic murmur Neurological exam: PRESENT: alert, awake Results Laboratory Results: 10/03/18 04:21 10/03/18 04:21 09/30/18 10/01/18 10/01/18 20:00 00:35 00:35 Creatine Kinase 175 H CK-MB (CK-2) 2.64 Troponin I < 0.012 < 0.012 10/01/18 10/01/18 10/02/18 06:11 06:11 04:26 Creatine Kinase 209 H 213 H CK-MB (CK-2) 3.13 Troponin I < 0.012 10/02/18 04:26 Creatine Kinase CK-MB (CK-2) 4.39 Troponin I < 0.012 Impressions: Chest X-Ray 09/30/18 20:17 IMPRESSION: No evidence of acute cardiopulmonary disease. Head CT 09/30/18 20:54 IMPRESSION: 1. No acute intracranial abnormality by CT criteria. 2. The ventricular system is mildly enlarged out of proportion to the sulcal spaces. This could indicate a component of communicating hydrocephalus. This exam was performed according to our departmental dose-optimization program, which includes automated exposure control, adjustment of the mA and/or kV according to patient size and/or use of iterative reconstruction technique. Abdomen/Pelvis CT 09/30/18 22:24 IMPRESSION: No acute intrathoracic process. Large amount of stool in the colon. Fibroid change to the uterus. TECHNICAL DOCUMENTATION: Quality ID # [id number]: Final reports with documentation of one or more dose reduction techniques (e.g., Automated exposure control, adjustment of the mA and/or kV according to patient size, use of iterative reconstruction technique) copyright 2010 [employer]- All Rights Reserved Chest CT 09/30/18 22:24 IMPRESSION: No acute intrathoracic process. Large amount of stool in the colon. Fibroid change to the uterus. TECHNICAL DOCUMENTATION: Quality ID # [id number]: Final reports with documentation of one or more dose reduction techniques (e.g., Automated exposure control, adjustment of the mA and/or kV according to patient size, use of iterative reconstruction technique) copyright 2010 [employer] All Rights Reserved Cervical Spine CT 10/01/18 00:24 IMPRESSION: No evidence for acute C-spine abnormality TECHNICAL DOCUMENTATION: Quality ID # [id number]: Final reports with documentation of one or more dose reduction techniques (e.g., Automated exposure control, adjustment of the mA and/or kV according to patient size, use of iterative reconstruction technique) copyright 2010 [employer]- All Rights Reserved Assessment and Plan - Diagnosis (1) SIRS (systemic inflammatory response syndrome) Is this a current diagnosis for this admission?: Yes Plan: Her hypothermia and lactic acidosis has resolved. (2) Hypothermia Qualifiers: Encounter type: initial encounter Qualified Code(s): T68.XXXA - Hypothermia, initial encounter Is this a current diagnosis for this admission?: Yes Plan: Resolved with (3) Lethargy Is this a current diagnosis for this admission?: Yes Plan: Now patient is awake alert (4) Lactic acidosis Is this a current diagnosis for this admission?: Yes Plan: Resolved
[2018-10-04] MEDS: ATORVASTATIN CALCIUM 20 MG TABLET PO SCH (21:31)
[2018-10-05] MEDS: CEFEPIME HCL 2 GM in DEXTROSE 5%-WATER 50 ML IV SCH ×2 (10:35→21:44)
[2018-10-05] MEDS: FAMOTIDINE 20 MG TABLET PO SCH ×2 (10:38→21:44)
[2018-10-05] MEDS: DOCUSATE SODIUM 100 MG CAPSULE PO SCH ×2 (10:38→17:41)
[2018-10-05] MEDS: VITAMIN E (DL, ACETATE) 400 UNIT CAPSULE PO SCH (10:38)
[2018-10-05] MEDS: ASPIRIN 81 MG TABLET, ENT COATED PO SCH (10:38)
[2018-10-05] MEDS: ENOXAPARIN SODIUM INJ 40 MG/0.4 ML DISP.SYRIN SUBCUT SCH (10:39)
--- NOTE | 2018-10-05 17:52 | PDOC PROGRESS REPORT ---
Subjective Progress Note for:: 10/05/18 Subjective:: Patient seen while she is in sound sleep. She is arousable. No significant change overnight. Reason For Visit: ELEVATED LACTIC ACID LEVEL,HYPOTHERMIA Physical Exam Vital Signs: Temp Pulse Resp BP Pulse Ox 98.4 F 67 20 134/75 H 98 10/05/18 16:00 10/05/18 16:00 10/05/18 16:00 10/05/18 16:00 10/05/18 16:00 Intake & Output 10/04/18 10/05/18 10/06/18 06:59 06:59 06:59 Intake Total 4908 685 4676 Output Total 200 1700 975 Balance 1650 -923 107 Weight 64.8 kg 64.9 kg General appearance: PRESENT: no acute distress Respiratory exam: PRESENT: clear to auscultation roby. ABSENT: rales, rhonchi, wheezes Cardiovascular exam: PRESENT: RRR. ABSENT: diastolic murmur, rubs, systolic murmur GI/Abdominal exam: PRESENT: normal bowel sounds, soft. ABSENT: distended, guarding, mass, organolmegaly, rebound, tenderness Results Laboratory Results: 10/03/18 04:21 10/03/18 04:21 09/30/18 10/01/18 10/01/18 20:00 00:35 00:35 Creatine Kinase 175 H CK-MB (CK-2) 2.64 Troponin I < 0.012 < 0.012 10/01/18 10/01/18 10/02/18 06:11 06:11 04:26 Creatine Kinase 209 H 213 H CK-MB (CK-2) 3.13 Troponin I < 0.012 10/02/18 04:26 Creatine Kinase CK-MB (CK-2) 4.39 Troponin I < 0.012 Impressions: Chest X-Ray 09/30/18 20:17 IMPRESSION: No evidence of acute cardiopulmonary disease. Head CT 09/30/18 20:54 IMPRESSION: 1. No acute intracranial abnormality by CT criteria. 2. The ventricular system is mildly enlarged out of proportion to the sulcal spaces. This could indicate a component of communicating hydrocephalus. This exam was performed according to our departmental dose-optimization program, which includes automated exposure control, adjustment of the mA and/or kV according to patient size and/or use of iterative reconstruction technique. Abdomen/Pelvis CT 09/30/18 22:24 IMPRESSION: No acute intrathoracic process. Large amount of stool in the colon. Fibroid change to the uterus. TECHNICAL DOCUMENTATION: Quality ID # [id number]: Final reports with documentation of one or more dose reduction techniques (e.g., Automated exposure control, adjustment of the mA and/or kV according to patient size, use of iterative reconstruction technique) copyright 2010 [employer]- All Rights Reserved Chest CT 09/30/18 22:24 IMPRESSION: No acute intrathoracic process. Large amount of stool in the colon. Fibroid change to the uterus. TECHNICAL DOCUMENTATION: Quality ID # [id number]: Final reports with documentation of one or more dose reduction techniques (e.g., Automated exposure control, adjustment of the mA and/or kV according to patient size, use of iterative reconstruction technique) copyright 2010 [employer]- All Rights Reserved Cervical Spine CT 10/01/18 00:24 IMPRESSION: No evidence for acute C-spine abnormality TECHNICAL DOCUMENTATION: Quality ID # [id number]: Final reports with documentation of one or more dose reduction techniques (e.g., Automated exposure control, adjustment of the mA and/or kV according to patient size, use of iterative reconstruction technique) copyright 2010 [employer]- All Rights Reserved Assessment and Plan - Diagnosis (1) Debility and deconditioning Is this a current diagnosis for this admission?: Yes Plan: Patient qualifies for inpatient rehab for less than 30 days. (2) SIRS (systemic inflammatory response syndrome) Is this a current diagnosis for this admission?: Yes Plan: Her hypothermia and lactic acidosis has resolved. (3) Hypothermia Qualifiers: Encounter type: initial encounter Qualified Code(s): T68.XXXA - Hypoth ermia, initial encounter Is this a current diagnosis for this admission?: Yes Plan: Resolved with (4) Lethargy Is this a current diagnosis for this admission?: Yes Plan: Now patient is awake alert (5) Lactic acidosis Is this a current diagnosis for this admission?: Yes Plan: Resolved
[2018-10-05] MEDS: ATORVASTATIN CALCIUM 20 MG TABLET PO SCH (21:44)
[2018-10-06] MEDS: VITAMIN E (DL, ACETATE) 400 UNIT CAPSULE PO SCH (10:56)
[2018-10-06] MEDS: ENOXAPARIN SODIUM INJ 40 MG/0.4 ML DISP.SYRIN SUBCUT SCH (10:56)
[2018-10-06] MEDS: CEFEPIME HCL 2 GM in DEXTROSE 5%-WATER 50 ML IV SCH ×2 (10:56→21:22)
[2018-10-06] MEDS: FAMOTIDINE 20 MG TABLET PO SCH ×2 (10:56→21:22)
[2018-10-06] MEDS: DOCUSATE SODIUM 100 MG CAPSULE PO SCH ×2 (10:56→17:34)
[2018-10-06] MEDS: ASPIRIN 81 MG TABLET, ENT COATED PO SCH (10:56)
--- NOTE | 2018-10-06 14:59 | PDOC PROGRESS REPORT ---
Subjective Progress Note for:: 10/06/18 Subjective:: This is 65 years old black male patient with past medical history of dementia and nonverbal throughout his chief complaint of hypothermia. On arrival to ER her core temperature was 94.9 and her oxygen saturation was 99% on room air. All her blood works are unremarkable except markedly elevated lactic acid of 4.4. Her CT head pelvis chest and abdomen were negative. Patient has been managed conservatively. 10/06/18: No significant change overnight. Patient still has been awaiting for placement to rehab. Reason For Visit: ELEVATED LACTIC ACID LEVEL,HYPOTHERMIA Physical Exam Vital Signs: Temp Pulse Resp BP Pulse Ox 97.5 F 62 16 92/47 L 100 10/06/18 12:00 10/06/18 12:00 10/06/18 12:00 10/06/18 12:00 10/06/18 12:00 Intake & Output 10/05/18 10/06/18 10/07/18 06:59 06:59 06:59 Intake Total 777 1182 50 Output Total 1700 1350 Balance -923 -168 50 Weight 64.9 kg 63.6 kg General appearance: PRESENT: no acute distress Results Laboratory Results: 10/03/18 04:21 10/03/18 04:21 09/30/18 21:00 Blood Blood Culture - Final NO GROWTH IN 5 DAYS 09/30/18 20:00 Blood Blood Culture - Final NO GROWTH IN 5 DAYS 09/30/18 10/01/18 10/01/18 20:00 00:35 00:35 Creatine Kinase 175 H CK-MB (CK-2) 2.64 Troponin I < 0.012 < 0.012 10/01/18 10/01/18 10/02/18 06:11 06:11 04:26 Creatine Kinase 209 H 213 H CK-MB (CK-2) 3.13 Troponin I < 0.012 10/02/18 04:26 Creatine Kinase CK-MB (CK-2) 4.39 Troponin I < 0.012 Impressions: Chest X-Ray 09/30/18 20:17 IMPRESSION: No evidence of acute cardiopulmonary disease. Head CT 09/30/18 20:54 IMPRESSION: 1. No acute intracranial abnormality by CT criteria. 2. The ventricular system is mildly enlarged out of proportion to the sulcal spaces. This could indicate a component of communicating hydrocephalus. This exam was performed according to our departmental dose-optimization program, which includes automated exposure control, adjustment of the mA and/or kV according to patient size and/or use of iterative reconstruction technique. Abdomen/Pelvis CT 09/30/18 22:24 IMPRESSION: No acute intrathoracic process. Large amount of stool in the colon. Fibroid change to the uterus. TECHNICAL DOCUMENTATION: Quality ID # [id number]: Final reports with documentation of one or more dose reduction techniques (e.g., Automated exposure control, adjustment of the mA and/or kV according to patient size, use of iterative reconstruction technique) copyright 2010 [employer]- All Rights Reserved Chest CT 09/30/18 22:24 IMPRESSION: No acute intrathoracic process. Large amount of stool in the colon. Fibroid change to the uterus. TECHNICAL DOCUMENTATION: Quality ID # [id number]: Final reports with documentation of one or more dose reduction techniques (e.g., Automated exposure control, adjustment of the mA and/or kV according to patient size, use of iterative reconstruction technique) copyright 2010 [employer] All Rights Reserved Cervical Spine CT 10/01/18 00:24 IMPRESSION: No evidence for acute C-spine abnormality TECHNICAL DOCUMENTATION: Quality ID # [id number]: Final reports with documentation of one or more dose reduction techniques (e.g., Automated exposure control, adjustment of the mA and/or kV according to patient size, use of iterative reconstruction technique) copyright 2010 [employer]- All Rights Reserved Assessment and Plan - Diagnosis (1) Debility and deconditioning Is this a current diagnosis for this admission?: Yes Plan: Patient qualifies for inpatient rehab for less than 30 days. (2) SIRS (systemic inflammatory response syndrome) Is this a current diagnosis for this admission?: Yes Plan: Her hypothermia and lactic acidosis has resolved. (3) Hypothermia Qualifiers: Encounter type: initial encounter Qualified Code(s): T68.XXXA - Hypothermia, initial encounter Is this a current diagnosis for this admission?: Yes Plan: Resolved with (4) Lethargy Is this a current diagnosis for this admission?: Yes Plan: Now patient is awake alert (5) Lactic acidosis Is this a current diagnosis for this admission?: Yes Plan: Resolved
[2018-10-06] MEDS: ATORVASTATIN CALCIUM 20 MG TABLET PO SCH (21:22)
[2018-10-07] MEDS: VITAMIN E (DL, ACETATE) 400 UNIT CAPSULE PO SCH (10:01)
[2018-10-07] MEDS: DOCUSATE SODIUM 100 MG CAPSULE PO SCH ×2 (10:01→17:36)
[2018-10-07] MEDS: ENOXAPARIN SODIUM INJ 40 MG/0.4 ML DISP.SYRIN SUBCUT SCH (10:01)
[2018-10-07] MEDS: FAMOTIDINE 20 MG TABLET PO SCH ×2 (10:01→23:41)
[2018-10-07] MEDS: ASPIRIN 81 MG TABLET, ENT COATED PO SCH (10:01)
--- NOTE | 2018-10-07 10:51 | PDOC PROGRESS REPORT ---
Subjective Progress Note for:: 10/07/18 Subjective:: This is 65 years old black male patient with past medical history of dementia and nonverbal throughout his chief complaint of hypothermia. On arrival to ER her core temperature was 94.9 and her oxygen saturation was 99% on room air. All her blood works are unremarkable except markedly elevated lactic acid of 4.4. Her CT head pelvis chest and abdomen were negative. Patient has been managed conservatively. 10/06/18: No significant change overnight. Patient still has been awaiting for placement to rehab. 10/07/2018: Patient seen propped up in bed. And her was at bedside.. Reason For Visit: ELEVATED LACTIC ACID LEVEL,HYPOTHERMIA Physical Exam Vital Signs: Temp Pulse Resp BP Pulse Ox 98.1 F 92 17 124/73 92 10/07/18 08:05 10/07/18 08:05 10/07/18 08:05 10/07/18 08:05 10/07/18 08:05 Intake & Output 10/06/18 10/07/18 10/08/18 06:59 06:59 06:59 Intake Total 1182 1060 Output Total 1350 1200 Balance -168 -140 Weight 63.6 kg 66.4 kg General appearance: PRESENT: no acute distress Neurological exam: PRESENT: alert, awake Results Laboratory Results: 10/03/18 04:21 10/03/18 04:21 09/30/18 10/01/18 10/01/18 20:00 00:35 00:35 Creatine Kinase 175 H CK-MB (CK-2) 2.64 Troponin I < 0.012 < 0.012 10/01/18 10/01/18 10/02/18 06:11 06:11 04:26 Creatine Kinase 209 H 213 H CK-MB (CK-2) 3.13 Troponin I < 0.012 10/02/18 04:26 Creatine Kinase CK-MB (CK-2) 4.39 Troponin I < 0.012 Impressions: Chest X-Ray 09/30/18 20:17 IMPRESSION: No evidence of acute cardiopulmonary disease. Head CT 09/30/18 20:54 IMPRESSION: 1. No acute intracranial abnormality by CT criteria. 2. The ventricular system is mildly enlarged out of proportion to the sulcal spaces. This could indicate a component of communicating hydrocephalus. This exam was performed according to our departmental dose-optimization program, which includes automated exposure control, adjustment of the mA and/or kV according to patient size and/or use of iterative reconstruction technique. Abdomen/Pelvis CT 09/30/18 22:24 IMPRESSION: No acute intrathoracic process. Large amount of stool in the colon. Fibroid change to the uterus. TECHNICAL DOCUMENTATION: Quality ID # [id number]: Final reports with documentation of one or more dose reduction techniques (e.g., Automated exposure control, adjustment of the mA and/or kV according to patient size, use of iterative reconstruction technique) copyright 2010 [employer]- All Rights Reserved Chest CT 09/30/18 22:24 IMPRESSION: No acute intrathoracic process. Large amount of stool in the colon. Fibroid change to the uterus. TECHNICAL DOCUMENTATION: Quality ID # [id number]: Final reports with documentation of one or more dose reduction techniques (e.g., Automated exposure control, adjustment of the mA and/or kV according to patient size, use of iterative reconstruction technique) copyright 2010 [employer] All Rights Reserved Cervical Spine CT 10/01/18 00:24 IMPRESSION: No evidence for acute C-spine abnormality TECHNICAL DOCUMENTATION: Quality ID # [id number]: Final reports with documentation of one or more dose reduction techniques (e.g., Automated exposure control, adjustment of the mA and/or kV according to patient size, use of iterative reconstruction technique) copyright 2010 [employer]- All Rights Reserved Assessment and Plan - Diagnosis (1) Debility and deconditioning Is this a current diagnosis for this admission?: Yes Plan: Patient qualifies for inpatient rehab for less than 30 days. (2) SIRS (systemic inflammatory response syndrome) Is this a current diagnosis for this admission?: Yes Plan: Her hypothermia and lactic acidosis has resolved. (3) Hypothermia Qualifiers: Encounter type: initial encounter Qualified Code(s): T68.XXXA - Hypothermia, initial encounter Is this a current diagnosis for this admission?: Yes Plan: Resolved with (4) Lethargy Is this a current diagnosis for this admission?: Yes Plan: Now patient is awake alert (5) Lactic acidosis Is this a current diagnosis for this admission?: Yes Plan: Resolved
[2018-10-07] MEDS: ATORVASTATIN CALCIUM 20 MG TABLET PO SCH (23:41)
[2018-10-08] MEDS: VITAMIN E (DL, ACETATE) 400 UNIT CAPSULE PO SCH (10:00)
[2018-10-08] MEDS: ASPIRIN 81 MG TABLET, ENT COATED PO SCH (10:00)
[2018-10-08] MEDS: DOCUSATE SODIUM 100 MG CAPSULE PO SCH ×2 (10:00→17:14)
[2018-10-08] MEDS: FAMOTIDINE 20 MG TABLET PO SCH ×2 (10:00→22:27)
[2018-10-08] MEDS: ENOXAPARIN SODIUM INJ 40 MG/0.4 ML DISP.SYRIN SUBCUT SCH (10:09)
[2018-10-08 11:33] LABS: ABSOLUTE EOSINOPHILS # (AUTO) 0.1 10^3/uL (0.0-0.6); ABSOLUTE LYMPHOCYTES (AUTO) 1.3 10^3/uL (0.5-4.7); ABSOLUTE MONOCYTES (AUTO) 0.5 10^3/uL (0.1-1.4); ABSOLUTE NEUT (AUTO) 3.1 10^3/uL (1.7-8.2); BASOPHILS % (AUTO) 0.5 % (0-2); EOSINOPHILS % (AUTO) 2.4 % (0-6); HEMATOCRIT 37.9 % (36.0-47.0); HEMOGLOBIN 12.8 g/dL (12.0-15.5); LYMPHOCYTES % (AUTO) 24.7 % (13-45); MEAN CORPUSCULAR HEMOGLOBIN 30.6 pg (27.0-33.4); MEAN CORPUSCULAR HGB CONC 33.8 g/dL (32.0-36.0); MEAN CORPUSCULAR VOLUME 91 fl (80-97); MONOCYTES % (AUTO) 10.9 % (3-13); PLATELET COUNT 216 10^3/uL (150-450); RED BLOOD COUNT 4.19 10^6/uL (3.72-5.28); SEGMENTED NEUTROPHILS % (AUTO) 61.5 % (42-78); TOTAL CELLS COUNTED % (AUTO) 100 %; WHITE BLOOD COUNT 5.1 10^3/uL (4.0-10.5)
--- NOTE | 2018-10-08 11:43 | PDOC PROGRESS REPORT ---
Subjective Progress Note for:: 10/08/18 Subjective:: This is 65 years old black male patient with past medical history of dementia and nonverbal throughout his chief complaint of hypothermia. On arrival to ER her core temperature was 94.9 and her oxygen saturation was 99% on room air. All her blood works are unremarkable except markedly elevated lactic acid of 4.4. Her CT head pelvis chest and abdomen were negative. Patient has been managed conservatively. 10/06/18: No significant change overnight. Patient still has been awaiting for placement to rehab. 10/07/2018: Patient seen propped up in bed. And her was at bedside.. 10/08/2018: Patient seen propped up in bed. She is awake alert. She is not in pain or distress. Reason For Visit: ELEVATED LACTIC ACID LEVEL,HYPOTHERMIA Physical Exam Vital Signs: Temp Pulse Resp BP Pulse Ox 97.5 F 66 16 118/63 94 10/08/18 08:00 10/08/18 08:00 10/08/18 08:00 10/08/18 08:00 10/08/18 08:00 Intake & Output 10/07/18 10/08/18 10/09/18 06:59 06:59 06:59 Intake Total 1060 859 Output Total 1200 750 Balance -140 109 Weight 66.4 kg 65.2 kg General appearance: PRESENT: no acute distress Neurological exam: PRESENT: alert, awake Results Laboratory Results: 10/08/18 11:18 10/03/18 04:21 10/08/18 11:18 WBC 5.1 RBC 4.19 Hgb 12.8 Hct 37.9 MCV 91 MCH 30.6 MCHC 33.8 RDW 13.0 Plt Count 216 Seg Neutrophils % 61.5 Lymphocytes % 24.7 Monocytes % 10.9 Eosinophils % 2.4 Basophils % 0.5 Absolute Neutrophils 3.1 Absolute Lymphocytes 1.3 Absolute Monocytes 0.5 Absolute Eosinophils 0.1 Absolute Basophils 0.0 09/30/18 10/01/18 10/01/18 20:00 00:35 00:35 Creatine Kinase 175 H CK-MB (CK-2) 2.64 Troponin I < 0.012 < 0.012 10/01/18 10/01/18 10/02/18 06:11 06:11 04:26 Creatine Kinase 209 H 213 H CK-MB (CK-2) 3.13 Troponin I < 0.012 10/02/18 04:26 Creatine Kinase CK-MB (CK-2) 4.39 Troponin I < 0.012 Impressions: Chest X-Ray 09/30/18 20:17 IMPRESSION: No evidence of acute cardiopulmonary disease. Head CT 09/30/18 20:54 IMPRESSION: 1. No acute intracranial abnormality by CT criteria. 2. The ventricular system is mildly enlarged out of proportion to the sulcal spaces. This could indicate a component of communicating hydrocephalus. This exam was performed according to our departmental dose-optimization program, which includes automated exposure control, adjustment of the mA and/or kV according to patient size and/or use of iterative reconstruction technique. Abdomen/Pelvis CT 09/30/18 22:24 IMPRESSION: No acute intrathoracic process. Large amount of stool in the colon. Fibroid change to the uterus. TECHNICAL DOCUMENTATION: Quality ID # [id number]: Final reports with documentation of one or more dose reduction techniques (e.g., Automated exposure control, adjustment of the mA and/or kV according to patient size, use of iterative reconstruction technique) copyright 2010 [employer]- All Rights Reserved Chest CT 09/30/18 22:24 IMPRESSION: No acute intrathoracic process. Large amount of stool in the colon. Fibroid change to the uterus. TECHNICAL DOCUMENTATION: Quality ID # [id number]: Final reports with documentation of one or more dose reduction techniques (e.g., Automated exposure control, adjustment of the mA and/or kV according to patient size, use of iterative reconstruction technique) copyright 2010 [employer] All Rights Reserved Cervical Spine CT 10/01/18 00:24 IMPRESSION: No evidence for acute C-spine abnormality TECHNICAL DOCUMENTATION: Quality ID # [id number]: Final reports with documentation of one or more dose reduction techniques (e.g., Automated exposure control, adjustment of the mA and/or kV according to patient size, use of iterative reconstruction technique) copyright 2010 [employer]- All Rights Reserved Assessment and Plan - Diagnosis (1) Debility and deconditioning Is this a current diagnosis for this admission?: Yes Plan: Patient qualifies for inpatient rehab for less than 30 days. (2) SIRS (systemic inflammatory response syndrome) Is this a current diagnosis for this admission?: Yes Plan: Her hypothermia and lactic acidosis has resolved. (3) Hypothermia Qualifiers: Encounter type: initial encounter Qualified Code(s): T68.XXXA - Hypothermia, initial encounter Is this a current diagnosis for this admission?: Yes Plan: Resolved with (4) Lethargy Is this a current diagnosis for this admission?: Yes Plan: Now patient is awake alert (5) Lactic acidosis Is this a current diagnosis for this admission?: Yes Plan: Resolved
[2018-10-08] MEDS: ATORVASTATIN CALCIUM 20 MG TABLET PO SCH (22:27)
[2018-10-09] MEDS: DOCUSATE SODIUM 100 MG CAPSULE PO SCH ×2 (09:40→17:23)
[2018-10-09] MEDS: VITAMIN E (DL, ACETATE) 400 UNIT CAPSULE PO SCH (09:41)
[2018-10-09] MEDS: FAMOTIDINE 20 MG TABLET PO SCH ×2 (09:42→21:30)
[2018-10-09] MEDS: ASPIRIN 81 MG TABLET, ENT COATED PO SCH (09:42)
[2018-10-09] MEDS: ENOXAPARIN SODIUM INJ 40 MG/0.4 ML DISP.SYRIN SUBCUT SCH (09:45)
--- NOTE | 2018-10-09 15:30 | PDOC TRANSFER SUMMARY ---
General - Admit/Disc Date/PCP Admission Date/Primary Care Provider: 10/01/18 00:35 Discharge Date: 10/09/18 - Discharge Diagnosis (1) Debility and deconditioning Is this a current diagnosis for this admission?: Yes (2) SIRS (systemic inflammatory response syndrome) Is this a current diagnosis for this admission?: Yes (3) Hypothermia Is this a current diagnosis for this admission?: Yes (4) Lethargy Is this a current diagnosis for this admission?: Yes (5) Lactic acidosis Is this a current diagnosis for this admission?: Yes - Additional Information Resuscitation Status: Full Code Home Medications: Aspirin [Ecotrin 81 mg EC Tablet] 81 mg PO DAILY 10/01/18 Donepezil HCl 10 mg PO BID 10/01/18 Hydrocortisone 1 applic TP ASDIR PRN 10/01/18 Petrolatum,White [Hydrophor] 1 applic TP ASDIR PRN 10/01/18 Rosuvastatin Calcium [Crestor 10 mg Tablet] 10 mg PO DAILY 10/01/18 Vitamin E 400 unit PO DAILY 10/01/18 History of Present Illness Admission Date/PCP: 10/01/18 00:35 History of Present Illness: HARISH JAMES is a 63 year old female who presented to the emergency room with acute hypothermia. The patient is severely demented and nonverbal and as such is unable to contribute to her medical care or information. All medical information is obtained from reliable sources including the patient's , emergency room staff and all available medical records. The patient's indicates that she was apparently normal this morning when he saw her and broug ht her breakfast. However after breakfast she would normally be very active and she did not get up from her chair and as such he became somewhat concerned about her. He was observing her and though she seemed to be quite normal she continued to be significantly less active than her usual status. While he was observing her she seemed to try to get out of her chair but was unable to stand up and fell to the floor without striking her head or sustaining any apparent injury. When he went to her side to assist her he noticed that her skin felt very cold And her breathing was irregular. He became concerned and called EMS who found the patient hypothermic upon their arrival with a core temperature of 93.7 and she was also noted to have an oxygen saturation of 90% on room air. Patient was given supplemental oxygen via nasal cannula and brought to the emergency room. In the ER she was found to have a core temperature of 94.9 F and her oxygen saturation was 99% on room air with all other vital signs being normal and an unremarkable laboratory evaluation with the exception of an elevat ed serum lactate at 4.4. She was noted to be lethargic and poorly responsive to verbal commands. CT evaluations of her head, chest, abdomen and pelvis were negative for any acute changes. The patient's core temperature was raised to 97.2 F using a bear hugger warming blanket and she was subsequently admitted to the hospital for further evaluation and treatment. Hospital Course Hospital Course: This is 65 years old black male patient with past medical history of dementia and nonverbal throughout his chief complaint of hypothermia. On arrival to ER her core temperature was 94.9 and her oxygen saturation was 99% on room air. All her blood works are unremarkable except markedly elevated lactic acid of 4.4. Her CT head pelvis chest and abdomen were negative. Patient has been managed conservatively. 10/06/18: No significant change overnight. Patient still has been awaiting for placement to rehab. 10/07/2018: Patient seen propped up in bed. And her was at bedside.. 10/08/2018: Patient seen propped up in bed. She is awake alert. She is not in pain or distress. 10/09/2018: Patient seen while she is propped up in bed. She is awake alert. She is not in pain or distress. Her vital signs are stable. Except her weaknes s in her legs patient is stable. Patient completed 7 days course of cefepime for SIRS and lactic acidosis. She is debilitated and deconditioned she benefit from there is a 38 inpatient rehab. Physical Exam Vital Signs: Temp Pulse Resp BP Pulse Ox 97.8 F 64 17 103/57 L 97 10/09/18 11:21 10/09/18 11:21 10/09/18 11:21 10/09/18 11:21 10/09/18 11:21 Intake & Output 10/08/18 10/09/18 10/10/18 06:59 06:59 06:59 Intake Total 859 1220 740 Output Total 750 850 500 Balance 109 370 240 Weight 65.2 kg 63.9 kg General appearance: PRESENT: no acute distress Head exam: PRESENT: atraumatic GI/Abdominal exam: PRESENT: normal bowel sounds, soft. ABSENT: distended, guarding, mass, organolmegaly, rebound, tenderness Neurological exam: PRESENT: alert, awake Results Laboratory Results: 10/08/18 11:18 10/03/18 04:21 09/30/18 10/01/18 10/01/18 20:00 00:35 00:35 Creatine Kinase 175 H CK-MB (CK-2) 2.64 Troponin I < 0.012 < 0.012 10/01/18 10/01/18 10/02/18 06:11 06:11 04:26 Creatine Kinase 209 H 213 H CK-MB (CK-2) 3.13 Troponin I < 0.012 10/02/18 04:26 Creatine Kinase CK-MB (CK-2) 4.39 Troponin I < 0.012 Impressions: Chest X-Ray 09/30/18 20:17 IMPRESSION: No evidence of acute cardiopulmonary disease. Head CT 09/30/18 20:54 IMPRESSION: 1. No acute intracranial abnormality by CT criteria. 2. The ventricular system is mildly enlarged out of proportion to the sulcal spaces. This could indicate a component of communicating hydrocephalus. This exam was performed according to our departmental dose-optimization program, which includes automated exposure control, adjustment of the mA and/or kV according to patient size and/or use of iterative reconstruction technique. Abdomen/Pelvis CT 09/30/18 22:24 IMPRESSION: No acute intrathoracic process. Large amount of stool in the colon. Fibroid change to the uterus. TECHNICAL DOCUMENTATION: Quality ID # [id number]: Final reports with documentation of one or more dose reduction techniques (e.g., Automated exposure control, adjustment of the mA and/or kV according to patient size, use of iterative reconstruction technique) copyright 2010 [employer]- All Rights Reserved Chest CT 09/30/18 22:24 IMPRESSION: No acute intrathoracic process. Large amount of stool in the colon. Fibroid change to the uterus. TECHNICAL DOCUMENTATION: Quality ID # [id number]: Final reports with documentation of one or more dose reduction techniques (e.g., Automated exposure control, adjustment of the mA and/or kV according to patient size, use of iterative reconstruction technique) copyright 2010 [employer]- All Rights Reserved Cervical Spine CT 10/01/18 00:24 IMPRESSION: No evidence for acute C-spine abnormality TECHNICAL DOCUMENTATION: Quality ID # [id number]: Final reports with documentation of one or more dose reduction techniques (e.g., Automated exposure control, adjustment of the mA and/or kV according to patient size, use of iterative reconstruction technique) copyright 2011 [employer]- All Rights Reserved Qualifiers - * PATIENT BEING DISCHARGED WITH ANY OF THE FOLLOWING DIAGNOSIS: No Acute Heart Failure - Is this a Heart Failure Patient?: No LVEF < 40%?: No- if no continue to question #3 3. Anticoagulant therapy for permanect/persistent/paraoxysmal Afib or Aflutter: N/A
[2018-10-09] MEDS: ATORVASTATIN CALCIUM 20 MG TABLET PO SCH (21:30)
[2018-10-10] MEDS: VITAMIN E (DL, ACETATE) 400 UNIT CAPSULE PO SCH (10:23)
[2018-10-10] MEDS: FAMOTIDINE 20 MG TABLET PO SCH (10:24)
[2018-10-10] MEDS: DOCUSATE SODIUM 100 MG CAPSULE PO SCH (10:24)
[2018-10-10] MEDS: ASPIRIN 81 MG TABLET, ENT COATED PO SCH (10:24)
[2018-10-10] MEDS: ENOXAPARIN SODIUM INJ 40 MG/0.4 ML DISP.SYRIN SUBCUT SCH (10:25)
--- NOTE | 2018-10-10 11:08 | Progress Note ---
Provider Note Provider Note: This is an addendum to discharge summary I myself dictated for this patient. Patient seen and examined at bedside. She is awake alert she is not in pain or distress. Her vital signs are within normal limits. Otherwise no change from yesterday discharge summary. Patient is stable enough to be discharged to [facility] residential today.
[2018-10-10 14:12] VITALS: BP 91/72
== END 2018-10-10 17:54 | DRG 948 ==
LOC: ER 19:40 → EH 10-01 00:35 → 4S 10-01 02:40 → 4N 10-03 13:34
PROVIDERS: ADMIT Emergency Medicine; ATTEND Emergency Medicine
DX: R68.0 Hypothermia, not associated with low environmental temperature (principal); E87.2 Acidosis; G30.8 Other Alzheimer's disease; F02.80 Dementia in other diseases classified elsewhere, unspecified severity, without behavioral disturbance, psychotic disturbance, mood disturbance, and anxiety
CPT/HCPCS: 36415; 51702; 70450; 71045; 71260; 72125; 74177; 80048; 80053; 81001; 82550; 82553; 82803; 83605; 83735; 84439; 84443; 84481; 84484; 85025; 85027; 85610; 87040; 87086; 93005; 93010; 96361; 96365; 99285; J0692; J1650; J3490; J7060; J7120